=== PATIENT | female | born 1980 | race Caucasian/White ===

== ENCOUNTER 2018-11-26 08:56 | Outpatient (CLI) | payer OTHER ==
[2018-11-26 10:50] LABS: BASOPHILS # (AUTO) 0.2 10^3/uL (0.0-0.1); BASOPHILS % (AUTO) 2.3 %; EOSINOPHILS # (AUTO) 0.4 10^3/uL (0.0-0.7); EOSINOPHILS % (AUTO) 4.4 %; HGB - HEMOGLOBIN 14.8 g/dL (12.0-16.0); LYMPHOCYTES # (AUTO) 1.9 10^3/uL (1.5-3.5); LYMPHOCYTES % (AUTO) 18.7 %; MEAN CORPUSCULAR HEMOGLOBIN 31.6 pg (27.0-31.0); MEAN CORPUSCULAR HGB CONC 35.8 g/dL (32.0-36.0); MEAN CORPUSCULAR VOLUME 88.4 fL (81.0-99.0); MEAN PLATELET VOLUME 8.3 fL (7.9-10.8); MONOCYTES # (AUTO) 0.8 10^3/uL (0.0-1.0); MONOCYTES % (AUTO) 8.4 %; NEUTROPHILS # (AUTO) 6.6 10^3/uL (1.5-6.6); NEUTROPHILS % (AUTO) 66.2 %; PLT - PLATELET COUNT 208 10^3/uL (130-450); RED BLOOD COUNT 4.67 10^6/uL (4.20-5.40); RED CELL DISTRIBUTION WIDTH 12.9 % (12.0-15.0)
[2018-11-26 11:19] LABS: ALBUMIN 4.2 g/dL (3.2-5.5); ALBUMIN/GLOBULIN RATIO 1.1 (1.0-2.2); ALKALINE PHOSPHATASE 120 IU/L (42-121); ALT ALANINE AMINOTRANSFERASE 106 IU/L (10-60); AST ASPARTATE AMINOTRANSFERASE 76 IU/L (10-42); BILIRUBIN,TOTAL 0.9 mg/dL (0.2-1.0); BUN - BLOOD UREA NITROGEN 11 mg/dL (6-20); CALCIUM 9.2 mg/dL (8.5-10.3); CARBON DIOXIDE - CO2 21 mmol/L (21-32); CHLORIDE 101 mmol/L (101-111); CHOL/HDL RATIO 6.8 (<4.4); CHOLESTEROL 244 mg/dL; CREATININE 0.7 mg/dL (0.4-1.0); GFR - MDRD 94 (>89); GLUCOSE 120 mg/dL (70-100); HDL CHOLESTEROL 36 mg/dL; LDL CHOLESTEROL,CALCULATED 174 mg/dL; LDL/HDL RATIO 4.8 (<4.4); SODIUM 134 mmol/L (135-145); TOTAL PROTEIN 8.2 g/dL (6.7-8.2); VLDL CHOLESTEROL 34 mg/dL
[2018-11-26 11:20] LABS: HCG,QUALITATIVE BLOOD NEGATIVE
[2018-11-26 11:28] LABS: HEMOGLOBIN A1C 0.57 g/dL; HEMOGLOBIN A1C % 5.4 % (4.6-6.2)
== END 2018-11-26 08:57 | disposition home or self-care (01) ==
LOC: LAB.F 08:56
PROVIDERS: ATTEND Registered Nurse
DX: Z00.00 Encounter for general adult medical examination without abnormal findings (principal)
CPT/HCPCS: 36415; 80053; 80061; 83036; 83721; 84443; 84703; 85025

== ENCOUNTER 2018-12-11 02:02 | Emergency (ER) | payer OTHER ==
[2018-12-11 02:12] VITALS: BP 128/78
--- NOTE | 2018-12-11 02:40 | ED Physician Documentation ---
PD HPI UPPER EXT INJURY - Stated complaint Stated Complaint: RING STUCK ON FINGER - Chief complaint Chief Complaint: Ext Problem - History obtained from History obtained from: Patient, Family - History of Present Illness Location: Left, Finger (ring) Type of injury: Other (ring is too tight.) Where injury occurred: Home Timing - onset: Today Timing - duration: Hours Timing - details: Abrupt onset, Still present Improved by: Rest, Ice Worsened by: Moving, Palpating Associated symptoms: Swelling, Discolored Contributing factors: No: Anticoagulated Similar symptoms before: Has not had sx before Recently seen: Not recently seen - Additonal information Additional information: 38-year-old previously well female received a ring from her today and she put it on her finger and she has not been able to get it off. Her finger is now swollen and is quite painful. She has tried dental floss she is tried soap and all has failed. Review of Systems Constitutional: denies: Fever Respiratory: denies: Cough GI: denies: Vomiting PD PAST MEDICAL HISTORY - Past Medical History Past Medical History: No Cardiovascular: None Respiratory: None Neuro: None Endocrine/Autoimmune: None GI: None BRAND SPECIALIST: None : None HEENT: None Psych: None Musculoskeletal: None Derm: None - Past Surgical History Past Surgical History: Yes General: Other Ortho: Other /BRAND SPECIALIST: Dilation and currettage, Other Cardiovascular: CABG Neuro: Craniotomy HEENT: Cataracts Derm: Skin grafts - Allergies Allergies/Adverse Reactions: Allergies Allergy/AdvReac Type Severity Reaction Status Date / Time No Known Drug Allergies Allergy Verified 12/11/18 02:12 - Social History Does the pt smoke?: Yes Smoking Status: Current every day smoker Does the pt drink ETOH?: Yes Does the pt have substance abuse?: Yes Substance Use and Type: Marijuana - Immunizations Immunizations are current?: Yes - POLST Patient has POLST: No PD ED PE NORMAL - Vitals Vital signs reviewed: Yes (normal ) - General General: Alert and oriented X 3, Well developed/nourished, Other (appears to be in pain ) - HEENT HEENT: Atraumatic, PERRL - Respiratory Respiratory: No respiratory distress - Derm Derm: Normal color, Warm and dry, No rash - Extremities Extremities: Other (The left ring finger has a beautiful haley and white gold ring that appears new and is contricting the finger significantly. The finger is swollen distal to the ring and the ring is fit snuggly against the base of the finger. 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, No motor deficit, No sensory deficit, Normal speech Eye Opening: To Voice Verbal: Oriented - Psych Psych: Normal mood, Normal affect Results - Vitals Vitals: Vital Signs - 24 hr 12/11/18 12/11/18 02:10 02:21 Temperature 36.7 C Heart Rate 86 Respiratory 17 18 Rate Blood Pressure 128/78 O2 Saturation 96 Oxygen O2 Source Room air PD MEDICAL DECISION MAKING - ED course Complexity details: considered differential, d/w patient, d/w family ED course: 38-year-old female with a ring stuck on her ring finger has a lot of swelling and conservative measures are attempted with umbilical tape and this is much too painful for the patient. The ring cutter is engaged and the ring is removed. Departure - Departure Disposition: 01 Home, Self Care Clinical Impression: Ring or other jewelry causing external constriction, initial encounter Condition: Stable Follow-Up: ISABELA Alford [Provider Group]
[2018-12-11] MEDS ORDERED: ACETAMINOPHEN 1,000 MG/100 ML 100 ML IV ONE (03:03)
== END 2018-12-11 02:57 | disposition home or self-care (01) ==
LOC: ED 02:02
DX: S60.445A External constriction of left ring finger, initial encounter (principal); W49.04XA Ring or other jewelry causing external constriction, initial encounter; F17.200 Nicotine dependence, unspecified, uncomplicated; Z95.1 Presence of aortocoronary bypass graft
CPT/HCPCS: 99282; 99283; J0131

== ENCOUNTER 2019-10-11 17:09 | Outpatient (CLI) | payer OTHER ==
--- NOTE | 2019-10-11 18:43 | Ultrasound Report ---
Reason: TEST POSITIVE Procedure Date: 10/11/2019 Accession Number: [id number] / [id number] Procedure: US - OB First Trimester CPT Code: Final Report FULL RESULT: EXAM: FIRST TRIMESTER OBSTETRIC ULTRASOUND (Less than 11 weeks) EXAM DATE: 10/11/2019 06:08 PM. CLINICAL HISTORY: TEST POSITIVE. Spotting. Clinical dating: LMP 07/31/2019, EGA 10 weeks 2 days, MIRACLE 05/06/2020. COMPARISONS: None. TECHNIQUE: Transabdominal and transvaginal ultrasound examination with static image documentation. ASSESSMENT: Gestational Sac: Single intrauterine. Irregular contour. Mean gestational sac diameter: 23 mm = EGA 7 weeks 2 days. Embryo: CRL (crown-rump length) 5 mm = EGA 6 weeks 2 days, MIR[place]LE 06/03/2020. Cardiac activity: None seen. Yolk sac: Not seen. Amniotic fluid: Not accurately assessed at this gestational age. Early placenta: Not visible at this gestational age. Other: Multiple perigestational bleeds suspected, largest as follows: Right perigestational bleed measuring 1.2 x 0.9 cm. Left perigestational bleed measuring 0.8 x 0.9 cm. MATERNAL STRUCTURES: Uterus: Anteverted retroflexed. Unremarkable. Cervix: Closed. Right Ovary/Adnexa: The ovary measures 2.8 x 2.1 x 2.2 cm, volume 6.8 cc. Probable corpus luteum in the right ovary measuring 1.9 cm. Unremarkable. Left Ovary/Adnexa: The ovary measures 2.6 x 1.6 x 2.4 cm, volume 5 cc. Unremarkable. Free Fluid: None. IMPRESSION: 1. Single intrauterine . Multiple perigestational bleeds. Irregular contour of the gestational sac. Embryo crown-rump length measures 5 mm corresponding to EGA 6 weeks 2 days. No cardiac activity is seen. Recommend a 1 week follow-up OB ultrasound to evaluate for viability. 2. See above. [facility] The call report notification system was initiated by Dr. Criselda Carver at 06:20 PM on 10/11/2019. The above call report findings were discussed with Dr. Dove by Dr. Criselda Carver at 06:41 PM on 10/11/2019.
== END 2019-10-11 17:10 | disposition home or self-care (01) ==
LOC: DI 17:09
PROVIDERS: ATTEND Nurse Practitioner Obstetrics & Gynecology
DX: Z32.01 Encounter for pregnancy test, result positive (principal); O20.9 Hemorrhage in early pregnancy, unspecified; Z3A.01 Less than 8 weeks gestation of pregnancy
CPT/HCPCS: 76801; 76817

== ENCOUNTER 2019-10-12 16:05 | Emergency (ER) | payer OTHER ==
[2019-10-12] MEDS ORDERED: HYDROcod/ACETAM 5/325 MG TABLET PO STA (18:24)
--- NOTE | 2019-10-12 18:25 | ED Physician Documentation ---
History of Present Illness - Stated complaint Stated Complaint: POSS MISCARRIAGE - Chief complaint Chief Complaint: Abd Pain - History obtained from History obtained from: Patient - History of Present Illness Timing: Other (This is a G7, P4 with 2 previous miscarriages who presents at 11 weeks of by date with a known miscarriage based on ultrasound done yesterday showing single intrauterine of an age of 6 weeks without cardiac activity. She is bleeding heavier today and called OB who sent her in for potential Cytotec versus D&C. Last oral intake 430, half a sandwich.) Review of Systems Constitutional: denies: Fever, Chills Cardiac: denies: Chest pain / pressure, Palpitations Respiratory: denies: Dyspnea, Cough PD PAST MEDICAL HISTORY - Past Medical History Cardiovascular: None Respiratory: None Neuro: None Endocrine/Autoimmune: None GI: None DIRECTOR DATA MANAGEMENT: None : None HEENT: None Psych: None Musculoskeletal: None Derm: None - Past Surgical History Past Surgical History: Yes General: Other Ortho: Other /DIRECTOR DATA MANAGEMENT: Dilation and currettage, Other Cardiovascular: CABG Neuro: Craniotomy HEENT: Cataracts Derm: Skin grafts - Allergies Allergies/Adverse Reactions: Allergies Allergy/AdvReac Type Severity Reaction Status Date / Time Penicillins Allergy Anaphylaxis Verified 10/12/19 16:15 - Social History Does the pt smoke?: Yes Smoking Status: Current every day smoker Does the pt drink ETOH?: Yes Does the pt have substance abuse?: Yes - Immunizations Immunizations are current?: Yes - POLST Patient has POLST: No PD ED PE NORMAL - Vitals Vital signs reviewed: Yes - General General: Alert and oriented X 3, No acute distress - Abdomen Abdomen: Soft, Non tender - Female Female : Assistant Sales Director present (Dena TUBBS), Other (Closed and long, nontender) - Neuro Neuro: Alert and oriented X 3, Normal speech - Psych Psych: Normal mood, Normal affect Results - Vitals Vitals: Vital Signs - 24 hr 10/12/19 10/12/19 16:15 18:17 Temperature 36.8 C 37.2 C Heart Rate 70 78 Respiratory 16 16 Rate Blood Pressure 125/63 112/50 L O2 Saturation 96 97 Oxygen O2 Source Room air PD MEDICAL DECISION MAKING - ED course ED course: 39-year-old woman, known to be O+ per her, sure of her dates presents with a missed . Closed and long on exam. Case discussed by phone with the on- call OB, Dr. Coughlin who recommends 600 mcg Of Cytotec now and then 1800 mg to go in divided doses as needed. Departure - Departure Disposition: 01 Home, Self Care Clinical Impression: Missed Condition: Good Record reviewed to determine appropriate education?: Yes Instructions: ED Miscarriage Incom Comments: For the misoprostol/Cytotec, take 600 mg every 3 hours until the is complete. Return for new or worsening symptoms. Forms: Activity restrictions
[2019-10-12] MEDS ORDERED: miSOPROStoL 200 MCG TABLET PO STA ×2 (18:54→18:58)
[2019-10-12] MEDS ORDERED: HYDROcod/ACET 5/325 Prepack 4 PO STA (18:54)
[2019-10-12] MEDS ORDERED: miSOPROStoL 200 MCG TABLET ONE (19:11)
[2019-10-12 19:31] VITALS: BP 115/54
== END 2019-10-12 19:32 | disposition home or self-care (01) ==
LOC: ED 16:05
DX: O02.1 Missed abortion (principal); Z3A.01 Less than 8 weeks gestation of pregnancy; F17.200 Nicotine dependence, unspecified, uncomplicated
CPT/HCPCS: 99283; A9270

== ENCOUNTER 2020-07-25 13:08 | Outpatient (CLI) | payer OTHER ==
[2020-07-25 20:54] LABS: BASOPHILS # (AUTO) 0.1 10^3/uL (0.0-0.1); BASOPHILS % (AUTO) 0.7 %; EOSINOPHILS # (AUTO) 0.4 10^3/uL (0.0-0.7); EOSINOPHILS % (AUTO) 4.2 %; LYMPHOCYTES # (AUTO) 2.3 10^3/uL (1.5-3.5); LYMPHOCYTES % (AUTO) 26.9 %; MEAN CORPUSCULAR HEMOGLOBIN 31.3 pg (27.0-31.0); MEAN CORPUSCULAR HGB CONC 32.4 g/dL (32.0-36.0); MEAN CORPUSCULAR VOLUME 96.7 fL (81.0-99.0); MEAN PLATELET VOLUME 10.6 fL (7.9-10.8); MONOCYTES # (AUTO) 0.6 10^3/uL (0.0-1.0); MONOCYTES % (AUTO) 6.9 %; NEUTROPHILS # (AUTO) 5.1 10^3/uL (1.5-6.6); NEUTROPHILS % (AUTO) 60.9 %; PLT - PLATELET COUNT 225 10^3/uL (130-450); RED BLOOD COUNT 4.79 10^6/uL (4.20-5.40); RED CELL DISTRIBUTION WIDTH 12.7 % (12.0-15.0); WHITE BLOOD COUNT 8.4 x10^3/uL (4.8-10.8)
[2020-07-25 21:16] LABS: ALBUMIN/GLOBULIN RATIO 1.1 (1.0-2.2); ALKALINE PHOSPHATASE 146 IU/L (42-121); ALT ALANINE AMINOTRANSFERASE 135 IU/L (10-60); AST ASPARTATE AMINOTRANSFERASE 85 IU/L (10-42); BILIRUBIN,TOTAL 0.5 mg/dL (0.2-1.0); BUN - BLOOD UREA NITROGEN 8 mg/dL (6-20); CALCIUM 9.3 mg/dL (8.5-10.3); CARBON DIOXIDE - CO2 27 mmol/L (21-32); CHLORIDE 103 mmol/L (101-111); CHOL/HDL RATIO 8.4 (<4.4); CHOLESTEROL 284 mg/dL; CREATININE 0.7 mg/dL (0.4-1.0); GLUCOSE 115 mg/dL (70-100); HDL CHOLESTEROL 34 mg/dL; LDL CHOLESTEROL,CALCULATED 188 mg/dL; LDL/HDL RATIO 5.5 (<4.4); SODIUM 139 mmol/L (135-145); TOTAL PROTEIN 7.5 g/dL (6.7-8.2); VLDL CHOLESTEROL 62 mg/dL
== END 2020-07-25 13:09 | disposition home or self-care (01) ==
LOC: LAB.S 13:08
PROVIDERS: ATTEND Registered Nurse
DX: K58.9 Irritable bowel syndrome, unspecified (principal); F43.10 Post-traumatic stress disorder, unspecified; G47.30 Sleep apnea, unspecified; K57.90 Diverticulosis of intestine, part unspecified, without perforation or abscess without bleeding; F41.8 Other specified anxiety disorders
CPT/HCPCS: 36415; 80053; 80061; 83721; 84443; 85025